=== PATIENT | male | born 1965 | race Caucasian/White ===

== ENCOUNTER 2018-03-15 18:49 | Emergency (ER) | payer SELFPAY ==
[~2018-03-15] VITALS: Ht 170.2 cm; Wt 76.4 kg
[2018-03-15 18:53] VITALS: Ht 170.2 cm; Wt 76.4 kg
[2018-03-15 19:34] LABS: BASOPHILS 0.2 % (0-2); EOSINOPHILS 0.1 % (0-7); HEMATOCRIT 41.9 % (42.0-54.0); IMMATURE GRANULOCYTES 0.1 % (0-5); LYMPHOCYTES 4.1 % (15-50); MCH 31.3 pg (26.0-34.0); MCHC 35.8 g/dL (31.0-37.0); MCV 87.3 fL (80.0-100.0); MEAN PLATELET VOLUME 11.1 fL (7.4-10.4); MONOCYTES 10.5 % (2-11); PLATELET COUNT 228 10x3/uL (130-400); RDW 11.9 % (11.5-14.5); WBC 8.5 10x3/uL (4.8-10.8)
[2018-03-15 19:44] LABS: ALBUMIN 2.8 g/dL (3.4-5.0); ALKALINE PHOSPHATASE 183 U/L (46-116); ALT (SGPT) 212 U/L (10-68); BILIRUBIN - TOTAL 0.92 mg/dL (0.2-1.3); CALC OSMOLALITY 262 mosm/kg (275-300); CALCIUM 8.6 mg/dL (8.5-10.1); CARBON DIOXIDE 26.1 mmol/L (21.0-32.0); CHLORIDE - SERUM 95 mmol/L (98-107); GLUCOSE 130 mg/dL (74-106); POTASSIUM - SERUM 3.9 mmol/L (3.5-5.1); SODIUM 130 mmol/L (136-145); UREA NITROGEN 13 mg/dL (7-18); eGFR NON AFRICAN AMERICAN 83 mL/min (90-120)
[2018-03-15 19:45] LABS: CREATINE KINASE 29 UL (21-232)
[2018-03-15 20:58] LABS: APPEARANCE CLEAR (CLEAR); BILIRUBIN NEGATIVE (NEGATIVE); COLOR YELLOW (YELLOW); GLUCOSE NEGATIVE (NEGATIVE); KETONE NEGATIVE (NEGATIVE); NITRITE NEGATIVE (NEGATIVE); PROTEIN TRACE mg/dL (NEGATIVE); SPECIFIC GRAVITY 1.015 (1.005-1.020)
[2018-03-15 21:20] LABS: UDS - AMPHET POSITIVE QUAL (NEGATIVE); UDS - BARB NEGATIVE QUAL (NEGATIVE); UDS - BENZO NEGATIVE QUAL (NEGATIVE); UDS - COCAINE NEGATIVE QUAL (NEGATIVE); UDS - OPIATE NEGATIVE QUAL (NEGATIVE); UDS - PCP NEGATIVE QUAL (NEGATIVE); UDS - THC NEGATIVE QUAL (NEGATIVE)
[2018-03-15] MEDS ORDERED: DOXYCYCLINE HY100 M2 PO (22:28)
[2018-03-15] MEDS ORDERED: NAPROSYN500 MG PO (22:28)
[2018-03-15 22:53] VITALS: BP 140/75
[2018-03-17 13:18] LABS: HEPATITIS C ANTIBODY <0.1 (0.0-0.9)
[2018-03-23 15:20] LABS: RMSF IGM 0.76 index (0.00-0.89)
== END 2018-03-15 22:54 | disposition home or self-care (01) ==
LOC: D.ER 18:49
PROVIDERS: Family Medicine
DX: R50.9 Fever, unspecified (principal); K75.9 Inflammatory liver disease, unspecified; F19.10 Other psychoactive substance abuse, uncomplicated; R11.0 Nausea